=== PATIENT | male | born 2000 | race Caucasian/White ===

== ENCOUNTER 2018-02-17 10:58 | Emergency (ER) | END 2018-02-17 12:37 | disposition home or self-care (01) ==

== ENCOUNTER 2019-01-09 22:06 | Emergency (ER) | payer OTHER ==
[~2019-01-09] VITALS: Ht 171.4 cm; Wt 79.9 kg
[~2019-01-09 22:06] MED LIST: ACET500C5 PO; IBUP-1542 PO; IBUP-1561 PO
[2019-01-09 22:43] VITALS: BP 118/77; PULSE 64; RESP 18; Ht 171.4 cm; Wt 79.9 kg
[2019-01-10] MEDS ORDERED: ONDANSETRON (ODT) 4 MG TAB ODT STA (01:11)
[2019-01-10] MEDS ORDERED: LIDOCAINE/MYLANTA 40 ML BTL PO ONE (01:30)
[2019-01-10] MEDS ORDERED: FAMOTIDINE 20 MG TAB PO ONE (01:30)
== END 2019-01-10 01:46 | disposition home or self-care (01) ==
LOC: FTE 22:06
DX: T62.91XA Toxic effect of unspecified noxious substance eaten as food, accidental (unintentional), initial encounter (principal); J45.909 Unspecified asthma, uncomplicated
CPT/HCPCS: Z7610 ×3; 99283